=== PATIENT | female | born 1970 | race African-American/Black ===

== ENCOUNTER 2016-07-23 14:59 | Emergency (ER) | payer OTHER ==
[~2016-07-23] VITALS: Ht 170.2 cm; Wt 87.3 kg
[2016-07-23 15:02] VITALS: Ht 170.2 cm; Wt 87.3 kg
[2016-07-23 17:21] LABS: URINE BLOOD (Dip) POC 2+ (NEGATIVE)
[2016-07-23] MEDS ORDERED: PHEN-538 PO (17:42)
[2016-07-23] MEDS ORDERED: LIDO5OI35 TP (17:43)
--- NOTE | 2016-07-23 17:50 | ERD ---
ER Documentation Chief Complaint Date/Time DATE: 07/23/16 TIME: 17:46 Chief Complaint RECURRENT DYSURIA X 6 MOS HPI This a 46-year-old female who presents the emergency department today complaining of chronic pain in her urethra. Patient states that she has seen her primary care doctor and [facility] who has recommended referral to a urologist however she is not able to get an appointment for quite some time and states that she has pain. States that she has been tested for urinary tract infections , sexually transmitted infections and yeast infections and that all of those have come out negative. States this is been ongoing for the past 6 months. Denies any fevers or chills. ROS All systems reviewed and are negative except as per history of present illness. Medications Home Meds Active Scripts Lidocaine (LIDOCAINE) 35.44 Gm Oint...g., 35.44 GM TP 2-3x week, #1 TUB Prov:JACK SHEEHAN PA-C 07/23/16 Phenazopyridine Hcl* (Pyridium*) 200 Mg Tab, 200 MG PO TID Y for URINARY PAIN, # 6 TAB Prov:JACK SHEEHAN PA-C 07/23/16 Allergies Allergies: Coded Allergies: No Known Allergy (Unverified , 07/23/16) PMhx/Soc Medical and Surgical Hx: pt denies Surgical Hx History of Surgery: No Anesthesia Reaction: No Hx Neurological Disorder: No Hx Respiratory Disorders: No Hx Cardiac Disorders: No Hx Psychiatric Problems: No Hx Miscellaneous Medical Probl: Yes (chronic urethritis) Hx Alcohol Use: Yes (socially) Hx Substance Use: No Hx Tobacco Use: Yes Smoking Status: Current every day smoker Physical Exam Vitals Vital Signs Date Time Temp Pulse Resp B/P Pulse Ox O2 Delivery O2 Flow Rate FiO2 07/23/16 15:02 98.1 66 18 137/66 99 Physical Exam Const: NAD Head: Atraumatic Eyes: Normal Conjunctiva ENT: Normal External Ears, Nose and Mouth. Neck: Full range of motion..~ No meningismus. Resp: Clear to auscultation bilaterally Cardio: Regular rate and rhythm, no murmurs Abd: Soft, non tender, non distended. Normal bowel sounds erythematous swollen urethra with no evidence of purulent drainage. Skin: No petechiae or rashes. No vesicles or lesions Neur: Awake and alert Psych: Normal Mood and Affect Results 24 hrs Laboratory Tests Test 07/23/16 17:21 Bedside Urine pH (LAB) 5.5 Bedside Urine Protein (LAB) 1+ Bedside Urine Glucose (UA) Negative Bedside Urine Ketones (LAB) Negative Bedside Urine Blood 2+ Bedside Urine Nitrite (LAB) Negative Bedside Urine Leukocyte Esterase (L Trace Procedures/MDM This is a 46-year-old female who presents to the emergency department today for pain from chronic urethritis. Patient has been given his diagnosis by her primary care doctor and [facility]. She had indicated that her urine was negative for any infection and she has tested negative for any sexual transmitted infections or yeast infections. Her primary care doctor is Reji Rocha. She was referred to a urology specialist however she has been unable to get an appointment for a couple of weeks. On physical exam patient did have some erythema and swelling over her urethra. She has no abdominal pain and have low suspicion for acute surgical abdomen. UA shows trace leukocyte esterase negative nitrates and 2+ blood. Likely dirty catch. I will not treat the patient for urinary tract infection. I did send the urine for gonorrhea and chlamydia. I did speak to the laborist filler leaf cutter long Dr. Mcmahan who recommended that I give the patient topical lidocaine as well as Pyridium. Patient symptoms at this time consistent with dysuria and chronic urethritis. Patient was instructed to follow-up on her appointment for the urology specialist. I have also given her a list of other urology specialist in the area to see if she may build to get into see 1 of them sooner. I also gave her a list of [facility] referrals. At this time the patient is stable for discharge and outpatient management. Patient should follow up with their PCP in the next 1-2 days. They may return to the emergency department sooner for any persistent or worsening of symptoms. Patient understood and agreed with the plan. Departure Diagnosis: Primary Impression: Urethritis, unspecified Condition: Fair Patient Instructions: Urethritis in Women, Dysuria, Uncertain Cause (Adult) Referrals: ALCIDES GARZON MD,CHICO MENDOZA,NOVA SHAW,BRANDEN CAMACHO,KAMERON JONES,CHANDRA ARNDT,YOU HODGE,JODIE COTTRELL,EVA PARDO,MIHIR REICH MD, DONALD MD= LISS CXO your urologist [facility] [id number] [facility] [address] [place] [address] OFFICE FAX , [facility] [address] [place], [place] [id number] [address] SANTO, BISHOP [address] [place] [address] [address] YANCEY, [facility] [address] [facility], [address], [facility] [address] [address] ARELLANO, [facility] [address] [place] [address] [facility] [address] [place] [address] [facility] [id number] [address] [facility] [address] [facility] [facility] [address] [address] CHOU, JALYN [address] [facility]. [address], [facility] [address] [facility] [address] [place], [place] [id number] Additional Instructions: Call your primary care doctor TOMORROW for an appointment during the next 1-2 days.See the doctor sooner or return here if your condition worsens before your appointment time. Make an appointment with the urologist Take Pyridium for pain. Will turn your urine orange Use lidocaine topically for pain JACK SHEEHAN PA-C Jul 23, 2016 17:50
== END 2016-07-23 18:17 | disposition home or self-care (01) ==
LOC: FTE 14:59
DX: N34.2 Other urethritis (principal); F17.210 Nicotine dependence, cigarettes, uncomplicated
CPT/HCPCS: 81003; 87591; Z7502; 99283

== ENCOUNTER 2019-01-31 19:54 | Emergency (ER) | payer OTHER ==
[~2019-01-31] VITALS: Ht 165.1 cm; Wt 90.0 kg
[~2019-01-31 19:54] MED LIST: GABA100C PO; LIDO35.415 TP; PHEN-538 PO
[2019-01-31 20:00] VITALS: Ht 165.1 cm; Wt 90.0 kg
[2019-01-31] MEDS ORDERED: morphine 10 MG INJ IM ONE (20:30)
[2019-01-31 20:46] VITALS: BP 128/81; PULSE 82; RESP 19
== END 2019-01-31 20:48 | disposition home or self-care (01) ==
LOC: E/R 19:54
DX: M79.2 Neuralgia and neuritis, unspecified (principal); F17.210 Nicotine dependence, cigarettes, uncomplicated
CPT/HCPCS: 96372; J2270; Z7502